=== PATIENT | female | born 1950 | race Caucasian/White ===

== ENCOUNTER → 2020-07-03 | Day surgery (SDC) | payer MEDICARE, OTHER ==
[~2020-07-03] VITALS: Ht 165.1 cm; Wt 77.1 kg
[~2020-07-03] MED LIST: ACETAMINOPHEN500 M1 PO; COLACE100 MG PO; HORSETAIL GRASS PO; KEPPRA100 MG/1 M PO; MOTRIN600 MG PO; MVI PO; NETTLE LEAF PO; OXY-IR 5MG5 MG PO; VIT B 12 PO; VIT D3 PO; [UNRECOGNIZED DRUG - OTHER] PO
== END | disposition home or self-care (01) ==
LOC: FAS 08:39
DX: C50.412 Malignant neoplasm of upper-outer quadrant of left female breast (principal); Z17.0 Estrogen receptor positive status [ER+]; G40.909 Epilepsy, unspecified, not intractable, without status epilepticus; I10 Essential (primary) hypertension; Z20.822 Contact with and (suspected) exposure to COVID-19; Z90.49 Acquired absence of other specified parts of digestive tract; Z98.51 Tubal ligation status; Z80.3 Family history of malignant neoplasm of breast
CPT/HCPCS: 76098; 77065; 88342; A9541; J0360; J0690; J1170; J1644; J2250; J2405; J2704; J3010; J7120

== ENCOUNTER → 2020-09-01 | Day surgery (SDC) | payer MEDICARE, OTHER ==
[~2020-09-01] VITALS: Ht 165.1 cm; Wt 86.2 kg
== END | disposition home or self-care (01) ==
LOC: FAS 07:51
DX: D12.2 Benign neoplasm of ascending colon (principal); C50.912 Malignant neoplasm of unspecified site of left female breast; I10 Essential (primary) hypertension; E78.5 Hyperlipidemia, unspecified; Z86.010 Personal history of colon polyps
CPT/HCPCS: 88305; J2250; J2704; J7120